=== PATIENT | male | born 1960 | race Caucasian/White ===

== ENCOUNTER 2022-05-17 17:35 | Emergency (ER) | payer OTHER, SELFPAY ==
[2022-05-17 18:09] VITALS: BP 189/84; PULSE 80; RESP 18; TEMP 37.1; O2SAT 99; BMI 25.7
--- NOTE | 2022-05-17 18:13 | DI.RAD.S_ITS ---
PROCEDURE: XR CLAVICLE RT INDICATIONS: injury TECHNIQUE: 2 views of the clavicle were acquired. COMPARISON: None. FINDINGS: Bones: Comminuted fracture of the mid right clavicle shaft. There is superior angulation of the proximal clavicle shaft. The AC joint is not widened. There is mild displacement of the fracture fragments. No suspicious bony lesions. Soft tissues: No suspicious soft tissue calcifications. IMPRESSION: Right clavicle comminuted fracture. Dictated by: Clark Kelley M.D. on 05/17/2022 at 19:18 Approved by: Clark Kelley M.D. on 05/17/2022 at 19:19
--- NOTE | 2022-05-17 21:35 | ED.UPPEXIN ---
HPI - Extremity Injury (Upper) General Chief Complaint: Extremity Injury, Upper Stated Complaint: Fell on right side collar bone Time Seen by Provider: 05/17/22 21:07 Source: patient Mode of arrival: Family Vehicle History of Present Illness HPI narrative: Patient is a 62-year-old healthy male who presents with right clavicle injury. He was at work when he tripped on a curb his landing directly onto his clavicle. He did not hit his head he did not lose consciousness he has no neck pain. He has no numbness or tingling in his hand. He has had increased swelling over his course of waiting emergency department. He takes no medicine is not on any antiplatelet or anticoagulation medication Related Data Previous Rx's Medication Instructions Recorded hydrocodone 5 mg-acetaminophen 325 1 tab PO Q6H PRN pain #10 tabs 05/17/22 mg tablet Allergies Allergy/AdvReac Type Severity Reaction Status Date / Time No Known Drug Allergies Allergy Verified 05/17/22 18:12 Review of Systems Review of Systems Narrative: GENERAL: Denies chills,fever HEENT: Denies throat pain RESPIRATORY: Denies dyspnea, cough, wheezing CARDIOVASCULAR: Denies chest pain, palpitations GASTROINTESTINAL: Denies nausea, vomiting MUSCULOSKELETAL: See HPI SKIN: No rash, no laceration, no pruritus NEUROLOGIC: Denies weakness, dizziness, headache, numbness 8 point review of systems is negative except for those stated above and HPI Patient History Social History Smoking Status: Never smoker Smoking Status: Never smoker alcohol intake frequency: 0-2 drinks per day Substance Use Type: does not use Exam Initial Vital Signs Initial Vital Signs: Vital Signs Temperature 98.7 F 05/17/22 18:09 Pulse Rate 80 05/17/22 18:09 Respiratory Rate 18 05/17/22 18:09 Blood Pressure 189/84 H 05/17/22 18:09 Pulse Oximetry 99 05/17/22 18:09 Oxygen Delivery Method 05/17/22 18:09 GENERAL: Well-appearing alert 62-year-old male CARDIOVASCULAR: peripheral pulses in tact, cap refill <2 sec RESPIRATORY: No respiratory distress, speaks in full sentences without difficulty EXTREMITIES: Normal range of motion, no clubbing or edema. Neurovascularly intact Right clavicle step-off of mild swelling no bruising no contusion no tenting NEUROLOGICAL: Cranial nerves II through XII grossly intact. Normal gait and speech. SKIN: Warm, dry, no petechiae, no rashes or lesions. Course Orders Ordered: Discontinued Medications Hydrocodone Bitart/Acetaminophen (Hydrocodone/Acet 5/325 Prepack) 1 bottle MISC SEEINSTR ONE Stop: 05/17/22 21:44 Last Admin: 05/17/22 22:01 Dose: 1 bottle Documented By: AT Vital Signs Vital signs: Vital Signs - 8 hr 05/17/22 18:09 Temperature 98.7 F Pulse Rate 80 Respiratory Rate 18 Blood Pressure 189/84 H Pulse Oximetry 99 Oxygen Delivery Method Room Air MDM - Extremity Injury (Upper) Imaging Data Extremity x-ray #1: Radiologist's Impression: XRay Report Signed Patient: Edy Frost MR#: [id number] : 1960 Acct:[id number] Age/Sex: 62 / M Date of Service: 05/17/22 Loc: ED Accession Number: [id number] ?? Procedure: XR clavicle RT Ordering Provider: Shayla Hernandez D.O. PROCEDURE:? XR CLAVICLE RT ? INDICATIONS:? injury ? TECHNIQUE:? 2 views of the clavicle were acquired.? ? COMPARISON:? None. ? FINDINGS:? ? Bones:? Comminuted fracture of the mid right clavicle shaft.? There is superior angulation of the proximal clavicle shaft.? The AC joint is not widened.? There is mild displacement of the fracture fragments.? No suspicious bony lesions.? ? Soft tissues:? No suspicious soft tissue calcifications.? ? IMPRESSION:? Right clavicle comminuted fracture. ? ? Dictated by: Clark Kelley M.D. on 05/17/2022 at 19:18? [facility] Narrative Medical decision making narrative: The patient is found have a clavicle fracture he is placed in a sling. He is given Orthopedic follow-up. He does have some swelling but no obvious tenting on the skin. Does not appear to be bleeding or contusion at this time. Neurovascularly he is intact. Discharge Plan Departure Patient Disposition: Home Clinical Impression: Clavicle fracture Instructions: Clavicle Fracture Activity Restrictions/Additional Instructions: *You have been diagnosed with right clavicle fracture *What to do: Please keep arm in sling at all times. This will heal. It where may not require surgery. May need to sleep sitting up. Ice 20-30 minutes at a time. *Continue to take medications as directed Lovilia 1 tablet every 6 hours if needed for severe pain *Follow up with your primary care provider in 2-3 days or call [phone] Call orthopedics 1st thing Thursday morning to schedule follow-up appointment Please be sure to file anL&I *Return to ER if you should have increasing pain numbness tingling weakness swelling or or any new, worsening or concerning symptoms CONTROLLED SUBSTANCE DISCHARGE (Narcotoic/benzodiazepine/Flexeril/Phenergan) 1. You have been prescribed narcotic medications, it does have acetaminophen/Tylenol/paracetamol in it, DO NOT TAKE MORE THAN 4,00mg in 24 hours of Tylenol. TRAMADOL DOES NOT CONTAIN TYLENOL 2. Please understand that we cannot provide further refills of narcotics, benzodiazepines or controlled substances through the ED and her pain management will need to be through your provider. 3. While on these medications you cannot drive or operate heavy machinery. 4. You cannot sign legal documents or perform any duties such as this. 5. As long as you're taking opiate pain medications he should also be taking a stool softener such as Colace, Dulcolax, MiraLAX or prune juice, to help avoid constipation. Prescriptions: New hydrocodone-acetaminophen 5-325 mg tablet 1 tab PO Q6H PRN (Reason: pain) Qty: 10 0RF Referrals: [facility] [Provider Group] Miscellaneous,MD Vanessa [Primary Care Provider] - Sania Villegas MD [Physician] - Visit Report Forms: Patient Portal/API
[2022-05-17] MEDS: HYDROCODONE/ACET 5/325 PREPACK 1 BOTTLE MISC (22:01)
== END 2022-05-17 22:12 | disposition home or self-care (01) ==
PROVIDERS: Emergency Provider Emergency Medicine
DX: S42.021A Displaced fracture of shaft of right clavicle, initial encounter for closed fracture (principal); W01.0XXA Fall on same level from slipping, tripping and stumbling without subsequent striking against object, initial encounter
CPT/HCPCS: 73000; 99283